=== PATIENT | male | born 1940 | race African-American/Black ===

== ENCOUNTER 2016-05-04 13:23 | Outpatient (CLI) | payer MEDICARE, BC | END 2016-05-04 13:24 | disposition home or self-care (01) | DX: I10 Essential (primary) hypertension (principal) ==

== ENCOUNTER 2016-05-06 08:00 | Outpatient (CLI) | payer MEDICARE, BC | END 2016-05-06 23:59 | disposition home or self-care (01) | DX: I10 Essential (primary) hypertension (principal) ==

== ENCOUNTER 2016-07-24 16:12 | Emergency (ER) | payer MEDICARE, BC | END 2016-07-24 16:59 | disposition home or self-care (01) | DX: H66.91 Otitis media, unspecified, right ear (principal); I10 Essential (primary) hypertension; E78.5 Hyperlipidemia, unspecified; E11.9 Type 2 diabetes mellitus without complications; Z79.4 Long term (current) use of insulin; G25.81 Restless legs syndrome; Z79.82 Long term (current) use of aspirin ==

== ENCOUNTER 2016-10-01 12:00 | Outpatient (CLI) | payer MEDICARE, BC ==
[2016-10-01 13:36] LABS: ALBUMIN/GLOBULIN RATIO 1.2 (1.0-2.2); BILIRUBIN,TOTAL 0.4 mg/dL (0.2-1.0); BUN - BLOOD UREA NITROGEN 34 mg/dL (6-20); CALCIUM 9.7 mg/dL (8.5-10.3); CARBON DIOXIDE - CO2 20 mmol/L (21-32); CHLORIDE 108 mmol/L (101-111); CHOL/HDL RATIO 2.6 (<5.0); CHOLESTEROL 134 mg/dL; CREATININE 2.2 mg/dL (0.6-1.2); GFR - MDRD 36 (>89); GLUCOSE 66 mg/dL (70-100); HDL CHOLESTEROL 52 mg/dL; LDL/HDL RATIO 1.3 (<3.6); POTASSIUM 4.4 mmol/L (3.5-5.0); SODIUM 139 mmol/L (135-145); TOTAL PROTEIN 7.1 g/dL (6.7-8.2); TRIGLYCERIDES 83 mg/dL; VLDL CHOLESTEROL 17 mg/dL
== END 2016-10-01 12:01 | disposition home or self-care (01) ==
LOC: LAB.N 12:00
PROVIDERS: ATTEND Family Medicine
DX: N18.3 Chronic kidney disease, stage 3 (moderate) (principal); E11.9 Type 2 diabetes mellitus without complications
CPT/HCPCS: 36415; 80053; 80061; 82043

== ENCOUNTER 2016-10-02 08:00 | Outpatient (CLI) | payer MEDICARE, BC ==
[2016-10-02 13:32] LABS: HEMOGLOBIN A1C 0.64 g/dL
== END 2016-10-02 08:01 | disposition home or self-care (01) ==
LOC: LAB.WCP 08:00
PROVIDERS: ATTEND Family Medicine
DX: E11.9 Type 2 diabetes mellitus without complications (principal)
CPT/HCPCS: 36415; 83036

== ENCOUNTER 2016-11-06 10:19 | Outpatient (CLI) | payer MEDICARE, BC | END 2016-11-06 10:20 | disposition home or self-care (01) | LOC: SC 10:19 | PROVIDERS: ATTEND Nurse Practitioner Family | DX: G47.33 Obstructive sleep apnea (adult) (pediatric) (principal); G47.23 Circadian rhythm sleep disorder, irregular sleep wake type; F51.5 Nightmare disorder; R20.8 Other disturbances of skin sensation | CPT/HCPCS: 99215; G0463; 99212 ==

== ENCOUNTER 2016-12-03 10:57 | Outpatient (CLI) | payer MEDICARE, BC | END 2016-12-03 10:58 | disposition home or self-care (01) | LOC: SC 10:57 | PROVIDERS: ATTEND Nurse Practitioner Family | DX: G47.33 Obstructive sleep apnea (adult) (pediatric) (principal); F51.5 Nightmare disorder; G47.20 Circadian rhythm sleep disorder, unspecified type; M79.605 Pain in left leg; M79.604 Pain in right leg | CPT/HCPCS: 99215; G0463; 99212 ==

== ENCOUNTER 2016-12-13 19:56 | Outpatient (CLI) | payer MEDICARE, BC ==
--- NOTE | 2016-12-14 11:32 | Ultrasound Report ---
BILATERAL MARLEY'S: 12/13/2016 CLINICAL INDICATION: Bilateral claudication. TECHNIQUE: Real-time sonographic vascular imaging was performed by the job placement specialist through the @@ utilizing both color-flow and Doppler flow analysis. Multiple plastic products sales representative static images were saved for review. RIGHT SIDE SITE PSV WAVEFORM STEN BOTTOM PRECIPITATOR OPERATOR 143 monophasic DPA 21.7 biphasic LEFT SIDE SITE PSV WAVEFORM STEN BOTTOM PRECIPITATOR OPERATOR 180 monophasic DPA 21.9 monophasic TECHNIQUE: Real-time scanning was performed. SYSTOLIC PRESSURES RIGHT LEFT BRACHIAL ARTERY 150 138 POSTERIOR TIBIAL ARTERY 121 126 ANTERIOR TIBIAL ARTERY --- --- PERONEAL ARTERY --- --- ANKLE/ARM INDEX 0.8 0.8 FINDINGS: ABIs are decreased bilaterally, measuring 0.8 on both sides. Waveforms are predominantly monophasic. IMPRESSION: ABNORMAL MARLEY'S BILATERALLY. CONSIDER BILATERAL LOWER EXTREMITY ARTERIAL DUPLEX FOR FURTHER EVALUATION. MTDD
== END 2016-12-13 19:57 | disposition home or self-care (01) ==
LOC: DI 19:56
PROVIDERS: ATTEND Family Medicine
DX: I73.9 Peripheral vascular disease, unspecified (principal)
CPT/HCPCS: 93922

== ENCOUNTER 2016-12-17 19:02 | Outpatient (CLI) | payer MEDICARE, BC ==
--- NOTE | 2016-12-18 11:04 | Ultrasound Report ---
BILATERAL LOWER EXTREMITY ARTERIAL DUPLEX: 12/17/2016 CLINICAL INDICATION: Bilateral claudication. TECHNIQUE: Real-time sonographic vascular imaging was performed by the sewing machine attachment tester through the lower extremities utilizing both color-flow and Doppler spectral analysis. Multiple manufacturer's representative static images were saved for review. RIGHT SIDE SITE PSV WAVEFORM STEN MANAGER OF PROGRAM 109 triphasic PSFA 108 triphasic MSFA 107 triphasic DSFA 160 triphasic PFA 67.8 monophasic POP 100.9 biphasic JIMMY 28 monophasic ON AIR HOST 170 biphasic PER 89.9 monophasic DPA 14.9 monophasic LEFT SIDE SITE PSV WAVEFORM STEN MANAGER OF PROGRAM 144 biphasic PSFA 107.5 biphasic MSFA 140 biphasic DSFA 127 biphasic PFA 76.9 monophasic POP 56 monophasic JIMMY 113 biphasic ON AIR HOST 102 monophasic PER 98 monophasic DPA 21 monophasic TECHNIQUE: Real-time scanning was performed. FINDINGS: Right leg: Waveforms are triphasic in the thigh, with predominantly monophasic waveforms in the calf. There is no evidence of a focal velocity increase to suggest a hemodynamically significant stenosis. Left leg: Waveforms are biphasic in the thigh and predominantly monophasic in the calf. There is no evidence of a focal velocity increase to suggest a hemodynamically significant stenosis. IMPRESSION: NO EVIDENCE OF A HEMODYNAMICALLY SIGNIFICANT ARTERIAL STENOSIS IN EITHER LEG. LIKELY SMALL VESSEL DISEASE, GIVEN THE WAVEFORMS. MTDD
== END 2016-12-17 19:03 | disposition home or self-care (01) ==
LOC: DI 19:02
PROVIDERS: ATTEND Family Medicine
DX: I73.9 Peripheral vascular disease, unspecified (principal)
CPT/HCPCS: 93925

== ENCOUNTER 2017-05-31 12:53 | Outpatient (CLI) | payer MEDICARE, BC ==
--- NOTE | 2017-05-31 17:36 | Ultrasound Report ---
DATE OF SERVICE: 05/31/2017 RENAL ULTRASOUND: 05/31/2017 CLINICAL INDICATION: Stage IV kidney disease. COMPARISON: 09/20/2007. TECHNIQUE: Real-time scanning was performed with career services representative static images obtained. FINDINGS: The right kidney measures 10.0 x 6.6 x 5.4 cm, and the left kidney measures 11.0 x 6.4 x 4.9 cm. Bilateral cortical cysts are present, measuring up to 1.6 cm on the right and 1.2 cm on the left. No hydronephrosis, solid renal lesion, or perinephric collection is present. Prevoid, the bladder measures 10.7 x 8.5 x 6.9 cm, yielding a prevoid volume of 329 mL Bilateral ureteral jets are present. Postvoid residual was 14 mL IMPRESSION: INCIDENTAL RENAL CYSTS. NO HYDRONEPHROSIS. NO SIGNIFICANT POSTVOID RESIDUAL. TD: 05/31/2017 17:36
== END 2017-05-31 12:54 | disposition home or self-care (01) ==
LOC: DI 12:53
PROVIDERS: ATTEND Internal Medicine Nephrology
DX: N18.4 Chronic kidney disease, stage 4 (severe) (principal)
CPT/HCPCS: 76770

== ENCOUNTER 2017-10-11 07:55 | Outpatient (CLI) | payer MEDICARE, BC ==
[2017-10-11 12:41] LABS: BASOPHILS % (AUTO) 0.3 %; EOSINOPHILS # (AUTO) 0.1 10^3/uL (0.0-0.7); EOSINOPHILS % (AUTO) 1.3 %; HGB - HEMOGLOBIN 12.6 g/dL (14.0-18.0); LYMPHOCYTES # (AUTO) 2.1 10^3/uL (1.5-3.5); MEAN CORPUSCULAR HEMOGLOBIN 27.2 pg (27.0-31.0); MEAN CORPUSCULAR VOLUME 85.1 fL (80.0-94.0); MEAN PLATELET VOLUME 9.2 fL (7.4-11.4); MONOCYTES # (AUTO) 0.6 10^3/uL (0.0-1.0); NEUTROPHILS # (AUTO) 4.4 10^3/uL (1.5-6.6); NEUTROPHILS % (AUTO) 61.4 %; PLT - PLATELET COUNT 140 10^3/uL (130-450); RED BLOOD COUNT 4.64 10^6/uL (4.70-6.10); RED CELL DISTRIBUTION WIDTH 16.2 % (12.0-15.0); WHITE BLOOD COUNT 7.2 x10^3/uL (4.8-10.8)
[2017-10-11 13:07] LABS: ALBUMIN 3.4 g/dL (3.2-5.5); ALBUMIN/GLOBULIN RATIO 0.9 (1.0-2.2); ALKALINE PHOSPHATASE 59 IU/L (42-121); ALT ALANINE AMINOTRANSFERASE 25 IU/L (10-60); AST ASPARTATE AMINOTRANSFERASE 28 IU/L (10-42); BILIRUBIN,TOTAL 0.5 mg/dL (0.2-1.0); BUN - BLOOD UREA NITROGEN 31 mg/dL (6-20); CALCIUM 9.2 mg/dL (8.5-10.3); CARBON DIOXIDE - CO2 20 mmol/L (21-32); CHLORIDE 110 mmol/L (101-111); CHOL/HDL RATIO 2.2 (<5.0); CHOLESTEROL 135 mg/dL; CREATININE 2.5 mg/dL (0.6-1.2); GFR - MDRD 31 (>89); GLUCOSE 73 mg/dL (70-100); HDL CHOLESTEROL 62 mg/dL; LDL CHOLESTEROL,CALCULATED 57 mg/dL; LDL/HDL RATIO 0.9 (<3.6); SODIUM 138 mmol/L (135-145); VLDL CHOLESTEROL 16 mg/dL
[2017-10-11 13:37] LABS: HEMOGLOBIN A1C 0.57 g/dL; HEMOGLOBIN A1C % 5.9 % (4.6-6.2)
== END 2017-10-11 07:56 | disposition home or self-care (01) ==
LOC: LAB.WCP 07:55
PROVIDERS: ATTEND Family Medicine
DX: E11.22 Type 2 diabetes mellitus with diabetic chronic kidney disease (principal); I12.9 Hypertensive chronic kidney disease with stage 1 through stage 4 chronic kidney disease, or unspecified chronic kidney disease; N18.3 Chronic kidney disease, stage 3 (moderate)
CPT/HCPCS: 36415; 80053; 80061; 82043; 83036; 83721; 85025

== ENCOUNTER 2017-12-03 10:38 | Outpatient (CLI) | payer MEDICARE, BC | END 2017-12-03 10:39 | disposition home or self-care (01) | LOC: SC 10:38 | PROVIDERS: ATTEND Nurse Practitioner Family | DX: G47.33 Obstructive sleep apnea (adult) (pediatric) (principal); G25.81 Restless legs syndrome | CPT/HCPCS: 99214; G0463; 99212 ==

== ENCOUNTER 2018-03-11 11:21 | Outpatient (CLI) | payer MEDICARE, BC ==
[2018-03-11 18:57] LABS: CALCIUM 8.9 mg/dL (8.5-10.3); CREATININE 2.4 mg/dL (0.6-1.2)
== END 2018-03-11 11:22 | disposition home or self-care (01) ==
LOC: LAB.WCP 11:21
PROVIDERS: ATTEND Family Medicine
DX: E11.22 Type 2 diabetes mellitus with diabetic chronic kidney disease (principal); I12.9 Hypertensive chronic kidney disease with stage 1 through stage 4 chronic kidney disease, or unspecified chronic kidney disease; N18.3 Chronic kidney disease, stage 3 (moderate)
CPT/HCPCS: 36415; 80048

== ENCOUNTER 2018-07-31 08:00 | Outpatient (CLI) | payer MEDICARE, BC ==
[2018-07-31 13:07] LABS: BASOPHILS % (AUTO) 0.4 %; EOSINOPHILS # (AUTO) 0.1 10^3/uL (0.0-0.7); EOSINOPHILS % (AUTO) 2.2 %; HGB - HEMOGLOBIN 11.9 g/dL (14.0-18.0); LYMPHOCYTES # (AUTO) 1.8 10^3/uL (1.5-3.5); LYMPHOCYTES % (AUTO) 33.6 %; MEAN CORPUSCULAR HEMOGLOBIN 27.3 pg (27.0-31.0); MEAN CORPUSCULAR HGB CONC 32.4 g/dL (32.0-36.0); MEAN CORPUSCULAR VOLUME 84.2 fL (80.0-94.0); MEAN PLATELET VOLUME 9.8 fL (7.4-11.4); MONOCYTES # (AUTO) 0.5 10^3/uL (0.0-1.0); MONOCYTES % (AUTO) 9.1 %; NEUTROPHILS # (AUTO) 2.9 10^3/uL (1.5-6.6); NEUTROPHILS % (AUTO) 54.7 %; PLT - PLATELET COUNT 136 10^3/uL (130-450); RED BLOOD COUNT 4.34 10^6/uL (4.70-6.10); RED CELL DISTRIBUTION WIDTH 15.9 % (12.0-15.0); WHITE BLOOD COUNT 5.3 x10^3/uL (4.8-10.8)
[2018-07-31 13:17] LABS: CALCIUM 9.8 mg/dL (8.5-10.3); CREATININE 3.4 mg/dL (0.6-1.2)
[2018-07-31 13:45] LABS: HB2 TOTAL 12.4 g/dL; HEMOGLOBIN A1C 0.59 g/dL; HEMOGLOBIN A1C % 6.5 % (4.6-6.2)
== END 2018-07-31 23:59 | disposition home or self-care (01) ==
LOC: LAB.WCP 08:00
PROVIDERS: ATTEND Family Medicine
DX: E11.9 Type 2 diabetes mellitus without complications (principal); I10 Essential (primary) hypertension; M10.9 Gout, unspecified
CPT/HCPCS: 36415; 80048; 83036; 85025

== ENCOUNTER 2018-10-27 08:20 | Outpatient (CLI) | payer MEDICARE, BC ==
[2018-10-27 12:25] LABS: ALBUMIN/GLOBULIN RATIO 1.2 (1.0-2.2); BILIRUBIN,TOTAL 0.8 mg/dL (0.2-1.0); CALCIUM 9.2 mg/dL (8.5-10.3); CREATININE 3.7 mg/dL (0.6-1.2); TOTAL PROTEIN 7.3 g/dL (6.7-8.2); URIC ACID 6.9 mg/dL (2.6-7.2)
[2018-10-27 12:47] LABS: BASOPHILS % (AUTO) 0.6 %; EOSINOPHILS # (AUTO) 0.1 10^3/uL (0.0-0.7); EOSINOPHILS % (AUTO) 2.3 %; HGB - HEMOGLOBIN 11.2 g/dL (14.0-18.0); LYMPHOCYTES # (AUTO) 1.6 10^3/uL (1.5-3.5); LYMPHOCYTES % (AUTO) 32.9 %; MEAN CORPUSCULAR HEMOGLOBIN 27.7 pg (27.0-31.0); MEAN CORPUSCULAR HGB CONC 31.5 g/dL (32.0-36.0); MEAN CORPUSCULAR VOLUME 88.1 fL (80.0-94.0); MEAN PLATELET VOLUME 12.4 fL (7.4-11.4); MONOCYTES # (AUTO) 0.5 10^3/uL (0.0-1.0); NEUTROPHILS # (AUTO) 2.6 10^3/uL (1.5-6.6); PLT - PLATELET COUNT 104 10^3/uL (130-450); RED BLOOD COUNT 4.04 10^6/uL (4.70-6.10); RED CELL DISTRIBUTION WIDTH 14.5 % (12.0-15.0); WHITE BLOOD COUNT 4.8 x10^3/uL (4.8-10.8)
[2018-10-27 13:23] LABS: HB2 TOTAL 11.9 g/dL; HEMOGLOBIN A1C 0.48 g/dL; HEMOGLOBIN A1C % 5.8 % (4.6-6.2)
== END 2018-10-27 08:21 | disposition home or self-care (01) ==
LOC: LAB.WCP 08:20
PROVIDERS: ATTEND Family Medicine
DX: Z00.00 Encounter for general adult medical examination without abnormal findings (principal); E11.22 Type 2 diabetes mellitus with diabetic chronic kidney disease; I12.0 Hypertensive chronic kidney disease with stage 5 chronic kidney disease or end stage renal disease; N18.5 Chronic kidney disease, stage 5; R00.1 Bradycardia, unspecified; L73.9 Follicular disorder, unspecified
CPT/HCPCS: 36415; 80053; 82306; 83036; 84443; 84550; 85025

== ENCOUNTER 2018-12-17 07:06 | Emergency (ER) | payer MEDICARE, BC ==
--- NOTE | 2018-12-17 07:38 | ED Physician Documentation ---
History of Present Illness - Stated complaint Stated Complaint: DIZZY - Chief complaint Chief Complaint: Cardiac - History obtained from History obtained from: Patient, Family - History of Present Illness Timing: How many days ago (4) - Additonal information Additional information: 78-year-old male with a history of diabetes and stage IV kidney disease has deve loped some exertional dyspnea and he has been into see Dr. Lira yesterday had some medication adjustments done and his blood work indicated a potassium of 7.4 and the patient was asked to come to the emergency department for evaluation. The patient indicates that he has been having some issues with exertional dyspnea that have been worsening and he has nocturnal dyspnea that is helped with sitting up at side of the bed. He states that last night he felt this same thing happened was able to sit up for a bit and felt much improved and this morning he is able to walk to the bathroom without shortness of breath. He was impressed with his improvement. Review of Systems Constitutional: denies: Fever Eyes: denies: Decreased vision Ears: denies: Ear pain Nose: reports: Congestion. denies: Rhinorrhea / runny nose Throat: denies: Sore throat Cardiac: reports: Pedal edema. denies: Chest pain / pressure, Palpitations Respiratory: reports: Dyspnea. denies: Cough, Wheezing GI: denies: Abdominal Pain, Nausea, Vomiting : denies: Dysuria, Frequency Skin: denies: Rash Musculoskeletal: denies: Neck pain, Back pain, Extremity pain Neurologic: denies: Generalized weakness, Focal weakness, Numbness PD PAST MEDICAL HISTORY - Past Medical History Cardiovascular: Hypertension, High cholesterol Endocrine/Autoimmune: Type 2 diabetes HEENT: None - Past Surgical History Past Surgical History: Yes General: Other - Present Medications Home Medications: Ambulatory Orders Medication Instructions Recorded Confirmed Allopurinol [Zyloprim] 300 mg ORAL DAILY 07/24/16 12/17/18 Aspirin 325 mg ORAL DAILY 07/24/16 12/17/18 Atorvastatin [Lipitor] 80 mg ORAL DAILY 07/24/16 12/17/18 Cholecalciferol (Vitamin D3) 2,000 units ORAL DAILY 07/24/16 12/17/18 [Vitamin D3] Doxazosin [Cardura] 8 mg ORAL DAILY 07/24/16 12/17/18 Felodipine [Felodipine ER] 10 mg ORAL DAILY 07/24/16 12/17/18 Fenofibrate 54 mg ORAL DAILY 07/24/16 12/17/18 Insulin Glargine [Lantus] 30 units SUBQ BID 07/24/16 12/17/18 Losartan [Cozaar] 10 mg ORAL DAILY 07/24/16 12/17/18 cloNIDine 0.3 MG PATCH 1 patch TOP TITR 07/24/16 12/17/18 [[id number]] rOPINIRole [Requip] 2 mg ORAL DAILY 07/24/16 12/17/18 - Allergies Allergies/Adverse Reactions: Allergies Allergy/AdvReac Type Severity Reaction Status Date / Time No Known Drug Allergies Allergy Verified 12/17/18 07:20 - Social History Does the pt smoke?: No Smoking Status: Never smoker Does the pt drink ETOH?: Yes Does the pt have substance abuse?: No - Immunizations Immunizations are current?: Yes PD ED PE NORMAL - Vitals Vital signs reviewed: Yes (hypertensive with wide pulse pressure) - General General: Alert and oriented X 3, No acute distress, Well developed/nourished - HEENT HEENT: Atraumatic, PERRL, EOMI - Neck Neck: Supple, no meningeal sign - Cardiac Cardiac: RRR, No murmur - Respiratory Respiratory: No respiratory distress, Clear bilaterally - Abdomen Abdomen: Soft, Non tender, Other (protruberant) - Back Back: No CVA TTP, No spinal TTP - Derm Derm: Normal color, Warm and dry, No rash - Extremities Extremities: No deformity, Other (trace edema bilat worse on the left ) - Neuro Neuro: Alert and oriented X 3, gun number 2-12 intact, No motor deficit, No sensory deficit, Normal speech Eye Opening: Spontaneous Motor: Obeys Commands Verbal: Oriented GCS Score: 15 - Psych Psych: Normal mood, Normal affect Results - Vitals Vitals: Vital Signs - 24 hr 12/17/18 12/17/18 12/17/18 07:17 08:02 09:30 Temperature 37.0 C Heart Rate 66 50 L 48 L Respiratory 17 22 14 Rate Blood Pressure 186/58 H 186/58 H 185/54 H O2 Saturation 98 95 97 Oxygen O2 Source Room air - EKG (time done) 0714 Rate: Rate (enter#) (57) Rhythm: NSR, LAE Ischemia: Normal ST segments Compare to prior EKG: Old EKG unavailable Computer interpretation: Agree with computer - Labs Labs: Laboratory Tests 12/17/18 12/17/18 12/17/18 07:38 07:38 07:38 WBC 8.0 RBC 4.08 L Hgb 11.3 L Hct 35.2 L MCV 86.3 MCH 27.7 MCHC 32.1 RDW 14.4 Plt Count 114 L MPV 11.9 H Neut # (Auto) 5.4 Lymph # (Auto) 1.8 Coos # (Auto) 0.7 Eos # (Auto) 0.1 Baso # (Auto) 0.0 Absolute Nucleated RBC 0.00 Nucleated RBC % 0.0 Sodium 139 Potassium 5.5 H Chloride 107 Carbon Dioxide 18 L Anion Gap 14.0 H BUN 93 H* Creatinine 7.4 H* Estimated GFR (MDRD) 9 L Glucose 64 L Calcium 9.2 Total Bilirubin 0.4 AST 24 ALT 29 Alkaline Phosphatase 37 L Troponin I High Sens 25.8 H* B-Natriuretic Peptide Total Protein 7.0 Albumin 4.0 Globulin 3.0 Albumin/Globulin Ratio 1.3 Lipase 27 12/17/18 07:38 WBC RBC Hgb Hct MCV MCH MCHC RDW Plt Count MPV Neut # (Auto) Lymph # (Auto) Coos # (Auto) Eos # (Auto) Baso # (Auto) Absolute Nucleated RBC Nucleated RBC % Sodium Potassium Chloride Carbon Dioxide Anion Gap BUN Creatinine Estimated GFR (MDRD) Glucose Calcium Total Bilirubin AST ALT Alkaline Phosphatase Troponin I High Sens B-Natriuretic Peptide 1177 H Total Protein Albumin Globulin Albumin/Globulin Ratio Lipase - Rads (name of study) chest 1 view Radiology: Prelim report reviewed (Impression normal single view chest.), EMP read indepedently, See rad report Procedures - IVC sono (time) 0923 Bedside IVC sono: IVC measures (cm) (2.34), IVC collapsed c insp (cm) (2.02), Collapsibility index (0.13), High CVP PD MEDICAL DECISION MAKING - ED course Complexity details: reviewed old records, reviewed results, re-evaluated patient, considered differential, d/w patient, d/w family ED course: 78-year-old male diabetic male with a history of stage IV kidney disease has retained some fluid and has developed some paroxysmal nocturnal dyspnea and this morning he was asked to come to the emergency department when his blood draw from yesterday showed a potassium of 7.4. This morning his potassium is 5.5 his renal failure is poor and he has retained fluid. I have consulted Dr. Lira and he is asked me to give the patient 80 mg of Lasix intravenously and increase his dose of doxazosin back to his original dose and increase his dose of torsemide to 60 mg daily. The patient is asked to follow-up with Dr. Lira tomorrow with report on his blood pressure. Departure - Departure Disposition: Home, Self Care Clinical Impression: Kidney disease with fluid retention Renal failure Qualifiers: Renal failure chronicity: acute on chronic Acute renal failure type: unspecified Chronic kidney disease stage: stage 4 (severe) Qualified Code(s): N17.9 - Acute kidney failure, unspecified; N18.4 - Chronic kidney disease, stage 4 (severe) Condition: Stable Instructions: ED CHF General, Heart Failure Tracking Weight Follow-Up: Wilton Hoffmann MD [Primary Care Provider] - Sharon John MD [Provider Admit Priv/Credential] - Comments: Today your potassium is 5.5 and your GFR is 9. You have retained extra fluid and getting this fluid off will help with your breathing. We have given you a dose of IV lasix 80mg and Dr. John has asked that we have you increase you torsamide to 60mg daily and move your doxasosin back to your original dose. He would like a phone call tomorrow with a blood pressure check.
[2018-12-17 07:53] LABS: BASOPHILS % (AUTO) 0.2 %; EOSINOPHILS # (AUTO) 0.1 10^3/uL (0.0-0.7); EOSINOPHILS % (AUTO) 0.9 %; HGB - HEMOGLOBIN 11.3 g/dL (14.0-18.0); LYMPHOCYTES # (AUTO) 1.8 10^3/uL (1.5-3.5); LYMPHOCYTES % (AUTO) 22.7 %; MEAN CORPUSCULAR HEMOGLOBIN 27.7 pg (27.0-31.0); MEAN CORPUSCULAR HGB CONC 32.1 g/dL (32.0-36.0); MEAN CORPUSCULAR VOLUME 86.3 fL (80.0-94.0); MEAN PLATELET VOLUME 11.9 fL (7.4-11.4); MONOCYTES # (AUTO) 0.7 10^3/uL (0.0-1.0); MONOCYTES % (AUTO) 9.2 %; NEUTROPHILS # (AUTO) 5.4 10^3/uL (1.5-6.6); NEUTROPHILS % (AUTO) 66.8 %; PLT - PLATELET COUNT 114 10^3/uL (130-450); RED BLOOD COUNT 4.08 10^6/uL (4.70-6.10); RED CELL DISTRIBUTION WIDTH 14.4 % (12.0-15.0)
--- NOTE | 2018-12-17 07:53 | XRAY Report ---
Reason: dizziness elevated K+ Procedure Date: 12/17/2018 Accession Number: [id number] / [id number] Procedure: XR - Chest 1 View X-Ray CPT Code: 61981 FULL RESULT: EXAM: CHEST RADIOGRAPHY EXAM DATE: 12/17/2018 07:33 AM. CLINICAL HISTORY: Dizziness and giddiness. COMPARISON: None. TECHNIQUE: 1 view. FINDINGS: Lungs/Pleura: No focal opacities evident. No pleural effusion. No pneumothorax. Mediastinum: Within exam limitations, the cardiomediastinal contour is normal. Other: None. IMPRESSION: Normal single view chest. RADIA
[2018-12-17 08:27] LABS: ALBUMIN/GLOBULIN RATIO 1.3 (1.0-2.2); BILIRUBIN,TOTAL 0.4 mg/dL (0.2-1.0); CALCIUM 9.2 mg/dL (8.5-10.3)
[2018-12-17 08:31] LABS: CREATININE 7.4 mg/dL (0.6-1.2)
[2018-12-17] MEDS ORDERED: FUROSEMIDE 100 MG/10 ML VIAL IVP STA (09:19)
[2018-12-17 10:19] VITALS: BP 166/59
== END 2018-12-17 10:51 | disposition home or self-care (01) ==
LOC: ED 07:06
DX: N17.9 Acute kidney failure, unspecified (principal); R60.0 Localized edema; R06.00 Dyspnea, unspecified; I12.9 Hypertensive chronic kidney disease with stage 1 through stage 4 chronic kidney disease, or unspecified chronic kidney disease; E11.22 Type 2 diabetes mellitus with diabetic chronic kidney disease; N18.4 Chronic kidney disease, stage 4 (severe); Z79.4 Long term (current) use of insulin; Z79.82 Long term (current) use of aspirin
CPT/HCPCS: 36415; 71045; 80053; 83690; 83880; 84484; 85025; 93005; 96374; 99284; J1940

== ENCOUNTER 2019-01-13 09:04 | Outpatient (CLI) | payer MEDICARE, BC | END 2019-01-13 09:05 | disposition home or self-care (01) | LOC: DI 09:04 | PROVIDERS: ATTEND Family Medicine | DX: I42.9 Cardiomyopathy, unspecified (principal) | CPT/HCPCS: 93306 ==

== ENCOUNTER 2019-01-27 11:35 | Outpatient (CLI) | payer MEDICARE, BC ==
[2019-01-27 19:32] LABS: CALCIUM 9.1 mg/dL (8.5-10.3); CREATININE 4.8 mg/dL (0.6-1.2)
== END 2019-01-27 11:36 | disposition home or self-care (01) ==
LOC: LAB.WCP 11:35
PROVIDERS: ATTEND Internal Medicine Nephrology
DX: N05.9 Unspecified nephritic syndrome with unspecified morphologic changes (principal); I50.32 Chronic diastolic (congestive) heart failure
CPT/HCPCS: 36415; 80048; 83880

== ENCOUNTER 2019-03-30 08:00 | Outpatient (CLI) | payer MEDICARE, BC ==
[2019-03-30 14:46] LABS: CREATININE 2.7 mg/dL (0.6-1.2)
== END 2019-03-30 23:59 | disposition home or self-care (01) ==
LOC: LAB.WCP 08:00
PROVIDERS: ATTEND Internal Medicine Nephrology
DX: N05.9 Unspecified nephritic syndrome with unspecified morphologic changes (principal); I50.32 Chronic diastolic (congestive) heart failure
CPT/HCPCS: 36415; 80048; 83880

== ENCOUNTER 2019-06-18 09:08 | Outpatient (CLI) | payer MEDICARE, BC ==
[2019-06-18 10:39] VITALS: BP 120/50
--- NOTE | 2019-06-18 10:39 | SLEEP CARE CONSULTATION ---
Information from patient questionnaire entered by Gina Hector. I have reviewed and concur with the information entered by Gina Hector. This document represents the service I personally performed and the decisions made by me, Trina Tobar, RN, MSN, AUTOMATION OPERATOR. History of Present Illness Previous diagnosis: Mild, Obstructive Sleep Apnea-Hypopnea Syndrome AHI: 9.4 Reason for follow up: annual (last seen 2018) Equipment type: CPAP Equipment obtained from: [facility] Mask style: Nasal pillows Mask brand: Resmed Backup mask available: Yes Last cushion change: 1 month ago - changing 3-4 weeks CPAP Compliance Data - Data Reviewed with Patient Average duration of nightly device use: 7.5 Compliance rate %: 96.7 (180 days) Current pressure setting (cmH2O): 10-15 Humidity settin Heated hose settin Average residual AHI: 6.0 Central apnea: 1.3 Obstructive apnea: 2.9 Hypopnea: 1.8 Average large leak: 2 min 14 sec Subjective Missed days of use due to: reports: travel (travel time on airline ), other (unknown) Patient concerns: reports: mask leak noise (wakes to adjust mask a couple times a night most nights ), dry mouth, nose, throat (moderate mouth dryness), other (high apnea readings). denies: aerophagia, mask discomfort, air blowing in eyes, condensation in mask/hose, nasal congestion, epistaxis Observed to snore while using device: No Current pressure setting perceived as: comfortable On therapy, patient: reports: awakening more refreshed, being more awake and alert during the day, more rested overall, other (with CPAP use and especially stopping metoprolol resolved nightmares, ropinerole stopped the kicking of legs ). denies: drowsiness while driving Initial [place] Sleepiness Scale score: 7 Current [place] Sleepiness Scale score: 9 Allergies and Home Medications Known drug allergies: Yes (tylenol ) Home medication list reviewed: Yes (see list with changes ) Review of Systems Review of systems same as previous: No (seen by cardiogist and echo and biltateral venous studies ordered/ leg pain) Physical Exam Blood Pressure: 120/50 Cuff size: long Heart Rate: 57 O2 Saturation: 97 Height: 5 ft 10 in Weight: 246 lb (with bilateral ankle braces total of 10 pounds ) Weight change since last visit: lost 23 pounds Body Mass Index: 35.3 BMI Classification: Obese Impression and Plan 1. Obstructive Sleep Apnea-Hypopnea Syndrome, mild, with good treatment compliance and elevated residual AHI overall of 6 but severeal nights of AHI of 10 or more. One night AHI in 40s. Patient denies ingestion of alcohol, muscle relaxant or sedative. Mask leaks not large on those nights. So unclear cause. On CPAP therapy, the patient has better sleep quality and is more rested overall. Patient has been researching surgical procedures for control of apnea. I explained that due to his hypertension and diabetes that CPAP is the best method of treatment for him with rationale explained. The patients pressure will be changed to autoCPAP 12-15 cmH20 for elevation of residual AHI. Patient advised to contact me if pressure change is uncomfortable so that it can be adjusted. Goals for apnea control discussed. To reduce mask shifting in sleep and waking him, I advised him to change mask cushions every 2 weeks. He mainly sleeps supine. But he preferred to sleep on his side before CPAP but mask was shifting. Thus I showed him a CPAP pillow sample. Mask leaks predominately from when patient sleeps on their side can be reduced by using a CPAP pillow. This and other styles can be bought online for about $60. Oral dryness can be reduced by adjusting humidity setting higher or heated hose lower or by adjusting both settings. Oral dryness can also be reduced by reducing mask leaks. Patient advised that chronic oral dryness can affect dental health and advised to follow up with dentist. In addition, there are oral dryness products that can be used to reduce dryness such as Biotene products, Dry mouth rinse and Xylomelts. Patient to discuss best option with dentist. Since his CPAP is over 5 years old and of reasonable use, I can also update it and he agreed. The new CPAPs have a better humidity system which could assist resolution of dryness. In addition, a chinstrap fitting can be completed to see if oral dryness is from oral venting but patient declined at this time. Patient has started to lose weight but slowly. I discussed how his weight loss will reduce his apnea and his CPAP pressure may need to be reduced in future if significant. Symptoms to report for CPAP pressure adjustment discussed. Patient's apnea severity and rationale for treatment to reduce apnea, improve sleep quality and reduce cardiovascular and cerebrovascular events was reviewed. I also reviewed the benefit of consistent device use of CPAP for hypertension, diabetes. * Update CPAP - Dreamstation preferred * Change CPAP pressure to12-15 cmH2O * Adjust heated hose. * Notify me if snoring with mask or feeling that the pressure is too much or too little * Continue to lose weight * Call this office if any problems using CPAP * Return for follow up in 2 months , or sooner if concerns arise Time Spent with Patient (minutes): 40 I spent 100% of this visit face to face with the patient with greater than 50% of this was spent time counseling the patient and coordination of care.
== END 2019-06-18 09:09 | disposition home or self-care (01) ==
LOC: SC 09:08
PROVIDERS: ATTEND Nurse Practitioner Family
DX: G47.33 Obstructive sleep apnea (adult) (pediatric) (principal); E66.9 Obesity, unspecified; Z68.35 Body mass index [BMI] 35.0-35.9, adult
CPT/HCPCS: 99215; G0463; 99212

== ENCOUNTER 2019-08-06 17:05 | Outpatient (CLI) | payer MEDICARE, BC ==
--- NOTE | 2019-08-06 15:58 | SLEEP CARE CONSULTATION ---
Information from patient questionnaire entered by Cathy Pepper. I have reviewed and concur with the information entered by Cathy Pepper. This document represents the service I personally performed and the decisions made by me, Trina Tobar, RN, MSN, OFFICE MACHINE SERVICER APPRENTICE. History of Present Illness Service Date and Time: 08/06/2019 1530 Previous diagnosis: Mild, Obstructive Sleep Apnea-Hypopnea Syndrome AHI: 9.4 Reason for follow up: first compliance after device update Equipment type: CPAP Equipment obtained from: [employer] Mask style: Nasal pillows Backup mask available: Yes Last cushion change: 2 weeks ago CPAP Compliance Data - Data Reviewed with Patient Average duration of nightly device use: 7h 58m Compliance rate %: 100 Current pressure setting (cmH2O): 14-18 Humidity settin Heated hose settin Average residual AHI: 7.7 Average large leak: 24m 52 Subjective Patient concerns: reports: mask leak noise (less since change to old mask ), dry mouth, nose, throat. denies: aerophagia, mask discomfort, air blowing in eyes, condensation in mask/hose, nasal congestion, epistaxis, other Observed to snore while using device: No Current pressure setting perceived as: comfortable On therapy, patient: reports: sleeping better, awakening more refreshed, being more awake and alert during the day, more rested overall. denies: drowsiness while driving, other Initial [place] Sleepiness Scale score: 7 Physical Exam Height: 5 ft 10 in Impression and Plan 1. Obstructive Sleep Apnea-Hypopnea Syndrome, mild, with good treatment compliance and slightly elevated residual AHI on his updated CPAP On CPAP therapy, the patient has better sleep quality and is more rested overall. Today his main concern is the humidifier running out of water and waking to a dry mouth. Thus I instructed him how to reduce the heated hose and discussed rationale for changing. If still dry, he can increase his humidity. Patient was able to change setting during this visit with verbal instruction. He was advised to contact [facility] if further concerns about the humidity setting. In addition, he is to notify the RT of his mask preference. Evidently his old mask fits better then the new mask tried. The patients pressure will be changed to autoCPAP 16-18 cmH20 For elevation of residual AHI. Patient advised to contact me if pressure change is uncomfortable so that it can be adjusted. Goals for apnea control discussed. Patient's apnea severity and rationale for treatment to reduce apnea, improve sleep quality. * Change CPAP pressure to 16-18 cmH2O * Adjust heated hose * Notify [employer] of mask choice * Notify me if snoring with mask or feeling that the pressure is too much or too little * Attempt to lose weight * Call this office if any problems using CPAP * Return for follow up in 1 month, or sooner if concerns arise Visit Type: Telehealth Phone (to minimize the risk of COVID-19 exposure, the pateint has agreed to a telehealth visit and to billing of his insurance) Patient agrees and consents to this telehealth visit type: Yes Time Spent with Patient (minutes): 10 Provider Statement: I spent 100% of the Telehealth Phone Call with the patient with greater than 50% spent counseling the patient and coordination of care.
== END 2019-08-06 17:06 | disposition home or self-care (01) ==
LOC: SC 17:05
PROVIDERS: ATTEND Nurse Practitioner Family
DX: G47.33 Obstructive sleep apnea (adult) (pediatric) (principal)

== ENCOUNTER 2019-09-09 15:35 | Outpatient (CLI) | payer MEDICARE, BC ==
--- NOTE | 2019-09-09 13:39 | SLEEP CARE CONSULTATION ---
Information from patient questionnaire entered by Gina Hector. I have reviewed and concur with the information entered by Gina Hector. This document represents the service I personally performed and the decisions made by me, Trina Tobar, RN, MSN, HOSIERY MENDER. History of Present Illness Service Date and Time: 09/09/2019 1535 Previous diagnosis: Mild, Obstructive Sleep Apnea-Hypopnea Syndrome AHI: 9.4 Reason for follow up: one month (pressure change) Equipment type: CPAP Equipment obtained from: [employer] Mask style: Nasal pillows (Dreamwear) Mask brand: Respironics Backup mask available: Yes Last cushion change: not since new mask given -about 2 weeks ago CPAP Compliance Data - Data Reviewed with Patient Average duration of nightly device use: 7.4 Compliance rate %: 100 Current pressure setting (cmH2O): 9-15 Humidity settin Heated hose settin Average residual AHI: 4.9 Average large leak: 8 min 40 sec Subjective Patient concerns: reports: dry mouth, nose, throat (occasional dry mouth), other (oral venting after pressure - so he dropped the pressure after looking on line to [id number]). denies: aerophagia, mask discomfort (newest mask style works best for comfort and control of mask leaks), air blowing in eyes, mask leak noise, condensation in mask/hose, nasal congestion, epistaxis Observed to snore while using device: No Current pressure setting perceived as: comfortable On therapy, patient: reports: sleeping better (especially since new mask and pressure reduction), awakening more refreshed, being more awake and alert during the day, more rested overall (slightly more rested overall ). denies: drowsiness while driving Initial [place] Sleepiness Scale score: 7 Allergies and Home Medications Home medication list reviewed: No (added Eliquist 2.5mg twice a day) Review of Systems Review of systems same as previous: No (atrial fibrillation / PAD) Physical Exam Height: 5 ft 10 in Weight: 227 lb 9.6 oz Body Mass Index: 32.6 BMI Classification: Obese Impression and Plan 1. Obstructive Sleep Apnea-Hypopnea Syndrome, mild, with good treatment compliance and good apnea control. On CPAP therapy, the patient has better sleep quality and is more rested overall. The last pressure change had caused oral venting. So patient looked online on how to reduce his pressure instead of contacting this office. I advised him of rationale to notify his sleep provider of any pressure concerns and risks of too high or too low of pressure range. The pressure range he finally changed to [id number] reduced his oral venting and is controlling apnea well. For oral dryness, he was advised that he can increase humidity or reduce hose to comfort with rationale explained. For his mask preference , he is to notify his DME of best mask for proper replacement. He is also advised to lose weight since his current weight shows obesity with BMI of 32 to reduce associated health risks. His current pressure range should accommodate some weight loss. Symptoms to report for additional pressure adjustment discussed. Patient's apnea severity and rationale for treatment to reduce apnea, improve sleep quality and reduce hypertension, cardiovascular and cerebrovascular events was reviewed. I also reviewed the benefit of consistent device use of CPAP for atrial fibrillation. Patient is planning on moving later this year to be closer to his daughter. He is to notify this office when this occurs and if needs to be seen prior to move. Once moved, he is to request a referral from his new PCP to a sleep specialist to establish care and annual visit with rationale discussed. * Continue auto CPAP pressure at 9-15 cmH2O * Adjust humidity and heated hose. * Notify me if snoring with mask or feeling that the pressure is too much or too little * Attempt to lose weight * Call this office if any problems using CPAP * Return for follow up in 1 year if does not move , or sooner if concerns arise Visit Type: Telehealth Video (to reduce risk of Covid 19 health exposure) Patient Location: Home Location of Provider: Home Patient agrees and consents to this telehealth visit type: Yes Patient agrees to have their insurance billed: Yes Time Spent with Patient (minutes): 25 Provider Statement: I spent 100% of the Telehealth Video Call with the patient with greater than 50% spent counseling the patient and coordination of care.
== END 2019-09-09 15:36 | disposition home or self-care (01) ==
LOC: SC 15:35
PROVIDERS: ATTEND Nurse Practitioner Family
DX: G47.33 Obstructive sleep apnea (adult) (pediatric) (principal); E66.9 Obesity, unspecified; Z68.32 Body mass index [BMI] 32.0-32.9, adult